=== PATIENT | female | born 1990 | race Caucasian/White ===

== ENCOUNTER 2020-06-15 05:34 | Inpatient (IN) | payer OTHER ==
[~2020-06-15] VITALS: Ht 175.3 cm; Wt 103.4 kg
[~2020-06-15 05:34] MED LIST: DICLEGIS DR 101 EACH PO; PHENERGAN 12.12.5 MG PR; PRENATAL VITAM1 EAC3 PO
[2020-06-15] MEDS ORDERED: ONDANSETRON HCL4 MG PO (06:25)
[2020-06-15] MEDS ORDERED: FERROUS SULFAT325 MG PO (06:25)
[2020-06-15] MEDS ORDERED: SLEEP AID25 M1 PO (06:26)
[2020-06-15 06:51] LABS: HEMOGLOBIN 12.7 gm/dl (12.3-15.3); RED BLOOD COUNT 4.17 M/UL (4.00-5.10); WHITE BLOOD COUNT 8.7 K/UL (4.5-11.0)
[2020-06-15] MEDS ORDERED: IBUPROFEN600 MG PO (15:29)
[2020-06-15] MEDS ORDERED: DOCUSATE SODIU250 MG PO (15:29)
== END 2020-06-16 19:57 | disposition home or self-care (01) | DRG 807 ==
LOC: OB 05:34
PROVIDERS: Obstetrics & Gynecology; ADMIT Obstetrics & Gynecology
PROC: 10E0XZZ Delivery of Products of Conception, External Approach (ICD-10-PCS; principal; 2020-06-15)
PROC: 10907ZC Drainage of Amniotic Fluid, Therapeutic from Products of Conception, Via Natural or Artificial Opening (ICD-10-PCS; 2020-06-15)
PROC: 3E033VJ Introduction of Other Hormone into Peripheral Vein, Percutaneous Approach (ICD-10-PCS; 2020-06-15)
PROC: 0U7C7ZZ Dilation of Cervix, Via Natural or Artificial Opening (ICD-10-PCS; 2020-06-15)
PROC: 3E0234Z Introduction of Serum, Toxoid and Vaccine into Muscle, Percutaneous Approach (ICD-10-PCS; 2020-06-16)
DX: O69.81X0 Labor and delivery complicated by cord around neck, without compression, not applicable or unspecified (principal); Z37.0 Single live birth; Z3A.39 39 weeks gestation of pregnancy; Z23 Encounter for immunization
CPT/HCPCS: 36415; 51702; 81001; 82800; 85014; 85018; 85025; 90715; J0595; J7120